=== PATIENT | female | born 1980 | race Hispanic/Latino ===

== ENCOUNTER 2018-09-10 09:34 | Emergency (ER) | payer BC ==
[~2018-09-10] VITALS: Ht 157.5 cm; Wt 136.4 kg
[2018-09-10] MEDS ORDERED: VITAMIN MULTI PO (09:42)
[2018-09-10] MEDS ORDERED: bcp PO (09:42)
[2018-09-10] MEDS ORDERED: OMEP40CA2 PO (09:42)
[2018-09-10] MEDS ORDERED: NS 1,000 ML IV ONE (10:30)
[2018-09-10 10:51] LABS: BASO % 0.2 % (0.0-1.0); EOS # 0.1 10^3/uL (0.0-0.50); EOS % 0.5 % (0.0-3.0); HEMATOCRIT 39.3 % (36.0-47.0); HEMOGLOBIN 13.2 g/dl (12.0-15.5); LYMPH # 1.6 10^3/uL (1.5-4.5); LYMPH % 9.4 % (24.0-44.0); MEAN CORPUSCULAR HEMOGLOBIN 28.4 pg (27.0-33.0); MEAN CORPUSCULAR HGB CONC 33.6 g/dl (32.0-36.5); MEAN CORPUSCULAR VOLUME 84.5 fl (80.0-96.0); MONO # 0.6 10^3/uL (0.0-0.8); MONO % 3.7 % (0.0-5.0); NEUTROPHILS # 14.5 10^3/uL (1.8-7.7); NEUTROPHILS % 85.4 % (36.0-66.0); PLATELET COUNT, AUTOMATED 316 10^3/uL (150-450); RED BLOOD COUNT 4.65 10^6/uL (4.00-5.40)
[2018-09-10 11:16] LABS: HCG, SERUM QUALITATIVE NEGATIVE (NEGATIVE)
[2018-09-10 11:17] LABS: BLOOD UREA NITROGEN 10 MG/DL (7-18); CALCIUM LEVEL 8.8 MG/DL (8.5-10.1); CARBON DIOXIDE LEVEL 21 MEQ/L (21-32); CHLORIDE LEVEL 106 MEQ/L (98-107); CREATININE FOR GFR 0.55 MG/DL (0.55-1.30); ETHYL ALCOHOL (ETHANOL) < 0.003 % (0.000-0.010); GLOMERULAR FILTRATION RATE > 60.0 (>60); GLUCOSE, FASTING 106 MG/DL (70-100); POTASSIUM SERUM 4.4 MEQ/L (3.5-5.1); SODIUM LEVEL 137 MEQ/L (136-145)
--- NOTE | 2018-09-10 12:41 | REP ---
CT of the brain without IV contrast: There is a frontal scalp hematoma. No calvarial fracture is identified. There is no subdural or epidural hematoma. There is no intraparenchymal or subarachnoid hemorrhage. There is no edema, mass effect or midline shift. Ventricles are normal size and midline. The visualized paranasal sinuses and mastoid air cells are clear. Impression: Frontal scalp hematoma. No intracranial hemorrhage, edema, mass effect or shift. Electronically Signed by Reji Seth MD 09/10/2018 12:32 P
--- NOTE | 2018-09-10 12:47 | REP ---
CT of the chest without IV contrast: There is no pneumothorax, hemothorax or pulmonary contusion. The lung guzman otherwise clear. There is no mediastinal hematoma. In the absence of IV contrast the study is insensitive for thoracic aortic dissection. Cardiac size is normal. No clavicle, scapula, sternal, rib or thoracic vertebral fractures are identified except for a questionable nondisplaced fracture of the right acromion on the superior most image. Impression: Essentially negative CT scan of the chest except for questionable nondisplaced fracture of the right acromion on the superior most image. Electronically Signed by Reji Seth MD 09/10/2018 12:39 P
--- NOTE | 2018-09-10 12:49 | REP ---
CT study of the cervical spine without contrast: History: Trauma. Technique: Helical scanning is acquired and overlapping 2 mm high resolution axial images were generated and reviewed at bone and soft tissue window settings. Coronal and sagittal multiplanar re-formations images are generated. CT findings: There is no evidence of cervical spine element fracture. No skull base fracture is seen. Cervical vertebral body heights are preserved. There is mild straightening on sagittal reformatted images and a mild levoconvex curvature is seen on coronal reformatted images consistent with spasm. Alignment is normal. Facet joints are normally aligned bilaterally at each cervical level on multiplanar re-formations images. There is no evidence of intraspinal or paraspinal hematoma. No extra vertebral abnormality is seen. Impression: Straightening, otherwise negative CT study of the cervical spine without contrast. No fracture seen. Electronically Signed by Ming Schmidt MD 09/10/2018 12:42 P
[2018-09-10 12:59] LABS: AMPHETAMINES LEVEL URINE NEGATIVE (NEGATIVE); BARBITURATES URINE NEGATIVE (NEGATIVE); BENZODIAZEPINES URINE NEGATIVE (NEGATIVE); CANNABINOIDS URINE NEGATIVE (NEGATIVE); COCAINE METABOLITE URINE NEGATIVE (NEGATIVE); METHADONE URINE NEGATIVE (NEGATIVE); OPIATES URINE NEGATIVE (NEGATIVE); PHENCYCLIDINE URINE NEGATIVE (NEGATIVE)
--- NOTE | 2018-09-10 13:24 | REP ---
CT of the abdomen and pelvis without IV or bowel contrast: There are no comparisons. There is soft tissue edema in the subcutaneous fat in the midline of the lower thoracic and lumbar areas. There are no focal fluid collections to suggest hematoma. The unenhanced hepatic parenchyma is homogeneous. The gallbladder, pancreas and unenhanced spleen are unremarkable. The adrenals and unenhanced kidneys are unremarkable. The unenhanced abdominal aorta is unremarkable. There is no periaortic hematoma. There is no hemoperitoneum. There is no pneumoperitoneum. There is no bowel distension or wall thickening. Pelvis: There is a 4.3 cm ring-shaped calcification anterolateral to the uterus on the right. This could represent a degenerating uterine fibroid or possibly a right ovarian mass. Follow-up ultrasound might be considered. There is no pelvic free fluid. The bladder is unremarkable. The pelvic bowel loops are unremarkable. No lumbar, sacral, pelvic or hip fractures are identified. There is degenerative disc disease in the lumbar spine L5 S1.Impression:There is no hemoperitoneum or pneumoperitoneum. There is no solid organ injury, however the study is insensitive in the absence of IV contrast. 4.3 cm ring-shaped mass in the right adnexa, nonspecific, right ovarian mass versus degenerating uterine fibroid. Consider ultrasound follow-up. No fractures are identified. L5 S1 degenerative disc disease. Electronically Signed by Reji Seth MD 09/10/2018 01:15 P
--- NOTE | 2018-09-10 13:29 | REP ---
The thoracic spine without contrast: History: Trauma. Technique: Helical scanning is acquired. Axial images are reformatted. Coronal and sagittal multiplanar re-formation images are generated and reviewed. CT findings: Thoracic vertebral body heights are preserved. Alignment is normal. No fracture or collapse is seen. No paravertebral hematoma is appreciated. There are mild degenerative disc changes in the mid and lower thoracic spine with anterior discogenic spurring. Visualized posterior ribs appear intact. Adjacent visualized lung guzman are unremarkable. Impression: Mild degenerative disc changes in the mid and lower thoracic spine. No traumatic abnormality noted. Electronically Signed by Ming Schmidt MD 09/10/2018 01:20 P
--- NOTE | 2018-09-10 13:45 | REP ---
MAXILLOFACIAL CT STUDY WITHOUT CONTRAST: HISTORY: Trauma. CT FINDINGS: There is soft-tissue swelling of the right frontal region consistent with a scalp hematoma. There is no evidence of skull or orbital fracture. Orbital margins are intact. Zygomatic arches are intact. Nasal bone appears intact. No facial fracture is appreciated. No mandibular fracture is seen. Visualized paranasal sinuses are clear. No intraorbital hematoma is appreciated. The visualized intracranial structures are unremarkable. IMPRESSION: Right frontal scalp hematoma. Otherwise negative. No facial fractures seen. Electronically Signed by Ming Schmidt MD 09/10/2018 08:31 P
--- NOTE | 2018-09-10 13:47 | REP ---
Right wrist four views : There is no fracture or dislocation. Mineralization and joint spaces are normal. There are no calcifications or foreign bodies. An IV cannula is incidentally noted in the soft tissues over the dorsum. Impression: Negative right wrist . Left wrist four views : There is no fracture or dislocation. Mineralization and joint spaces are normal. There are no calcifications or foreign bodies. Impression: Negative left wrist . Electronically Signed by Reji Seth MD 09/10/2018 01:39 P
--- NOTE | 2018-09-10 13:48 | REP ---
Right knee four views: Mineralization is normal. There is no fracture or dislocation. There is no effusion. There is tricompartment osteoarthritis. Electronically Signed by Reji Seth MD 09/10/2018 01:40 P
--- NOTE | 2018-09-10 13:49 | REP ---
Right shoulder four views: Mineralization and joint spaces are normal. There is no fracture or dislocation. No acromial fracture is identified. There are no calcifications or foreign bodies. Impression: Negative right shoulder. Electronically Signed by Reji Seth MD 09/10/2018 01:41 P
--- NOTE | 2018-09-10 13:50 | REP ---
Left ankle four views : There is no fracture or dislocation. Mineralization and joint spaces are normal. There are no calcifications or foreign bodies. Impression: Negative left ankle . Electronically Signed by Reji Seth MD 09/10/2018 01:42 P
[2018-09-10 14:08] VITALS: BP 166/89
[2018-09-10] MEDS ORDERED: IBUP-1022 PO (14:20)
[2018-09-10] MEDS ORDERED: ONDA4TAB6 PO (14:20)
[2018-09-10] MEDS ORDERED: IBUPROFEN 600 MG TAB PO ONE (14:30)
[2018-09-10] MEDS ORDERED: ONDANSETRON 4 MG ORAL DISINTEGRATING TAB (Q0162 PER 1MG) PO ONE (14:30)
--- NOTE | 2018-09-10 15:09 | ED PDOC ---
Post-Departure Follow-Up jonathan dockery faxed formal report of ct abd/p for fu Oumar Dc MD Sep 10, 2018 15:09
== END 2018-09-10 14:51 | disposition home or self-care (01) ==
LOC: M ED 09:34
DX: S09.90XA Unspecified injury of head, initial encounter (principal); S00.83XA Contusion of other part of head, initial encounter; S20.219A Contusion of unspecified front wall of thorax, initial encounter; S10.93XA Contusion of unspecified part of neck, initial encounter; S20.229A Contusion of unspecified back wall of thorax, initial encounter; S60.211A Contusion of right wrist, initial encounter; S60.212A Contusion of left wrist, initial encounter; S80.01XA Contusion of right knee, initial encounter; S90.02XA Contusion of left ankle, initial encounter; S06.0X9A Concussion with loss of consciousness of unspecified duration, initial encounter; W10.9XXA Fall (on) (from) unspecified stairs and steps, initial encounter; Y92.099 Unspecified place in other non-institutional residence as the place of occurrence of the external cause; Y93.9 Activity, unspecified; Y99.9 Unspecified external cause status; M51.37 Other intervertebral disc degeneration, lumbosacral region; R93.5 Abnormal findings on diagnostic imaging of other abdominal regions, including retroperitoneum; R93.7 Abnormal findings on diagnostic imaging of other parts of musculoskeletal system; M17.11 Unilateral primary osteoarthritis, right knee; M51.34 Other intervertebral disc degeneration, thoracic region; Z79.3 Long term (current) use of hormonal contraceptives; Z79.899 Other long term (current) drug therapy; Z88.6 Allergy status to analgesic agent; Z88.5 Allergy status to narcotic agent; Z91.89 Other specified personal risk factors, not elsewhere classified; Z91.010 Allergy to peanuts
CPT/HCPCS: 70450; 70486; 71250; 72125; 72128; 73030; 73110; 73564; 73610; 74176; 80048; 80307; 81001; 84703; 85025; 86850; 86870; 86900; 86901; 99284; G0480; Q0162

== ENCOUNTER → 2019-11-06 | Outpatient (CLI) | payer BC ==
[~2019-11-06] MED LIST: IBUP-1022 PO; OMEP40CA97 PO; ONDA4TAB6 PO; VITAMIN MULTI PO; bcp PO
== END ==
LOC: M LABSMTC 13:57
PROVIDERS: ATTEND Family Medicine
DX: Z03.818 Encounter for observation for suspected exposure to other biological agents ruled out (principal); Z11.59 Encounter for screening for other viral diseases
CPT/HCPCS: C9803; U0003

== ENCOUNTER 2019-11-25 19:57 | Emergency (ER) | payer BC, OTHER ==
[~2019-11-25] VITALS: Ht 157.5 cm; Wt 136.6 kg
[2019-11-25 20:09] VITALS: BP 131/69
[2019-11-25] MEDS ORDERED: IBUP-1022 PO (20:59)
[2019-11-25] MEDS ORDERED: IBUPROFEN 600MG TAB PO ONE (21:15)
--- NOTE | 2019-11-26 08:14 | REP ---
Left knee series: Five views. History: Injury in a fall. Findings: Five views of the left knee demonstrate moderate medial, lateral, and patellofemoral compartment osteoarthritic spurring. There is no evidence of fracture, subluxation, or joint effusion. Fragmented spurring is seen along the lateral aspect of the patella. Impression: Moderate to advanced three compartment osteoarthritic changes. No acute traumatic abnormality noted. Electronically Signed by Ming Schmidt MD 11/26/2019 08:06 A
--- NOTE | 2019-11-26 08:15 | REP ---
Right ankle series: Four views. History: Injury in a fall. Findings: Four views right ankle demonstrate mild anterolateral soft tissue swelling. There is plantar and Achilles calcaneal spurring. The ankle mortise is intact. No fractures seen. No other acute bony abnormality. Impression: Anterolateral soft-tissue swelling. Heel spurring. No fracture or other acute bony abnormality Electronically Signed by Ming Schmidt MD 11/26/2019 08:06 A
--- NOTE | 2019-11-26 08:15 | REP ---
Left wrist series: Four views. History: Injury in a fall. Comparison left wrist radiographs are from September 10, 2018. Findings: Overall mineralization pattern is normal. Bones, joints, and soft tissues are unremarkable and unchanged. No fracture or subluxation is seen. Impression: No fracture seen. Electronically Signed by Ming Schmidt MD 11/26/2019 08:07 A
== END 2019-11-25 21:20 | disposition home or self-care (01) ==
LOC: M ED 19:57
DX: S93.401A Sprain of unspecified ligament of right ankle, initial encounter (principal); T14.8XXA Other injury of unspecified body region, initial encounter; W18.39XA Other fall on same level, initial encounter; Y92.513 Shop (commercial) as the place of occurrence of the external cause

== ENCOUNTER → 2020-08-31 | Outpatient (CLI) | payer BC, MEDICAID ==
--- NOTE | 2020-09-04 07:55 | ECWPNPC ---
PATIENT NAME: JERONIMO BAUTISTA : 1980 GENDER: FEMALE VISIT DATE: 08/31/2020 DISCHARGE DATE: 08/31/20 1412 VISIT LOCKED DATE TIME: PHYSICIAN: KAYLENE SALVADOR RESOURCE: KAYLENE SALVADOR REASON FOR APPOINTMENT 1. WRIST,ANKLE KNEE. HISTORY OF PRESENT ILLNESS DEPRESSION SCREENING: PHQ-9 LITTLE INTEREST OR PLEASURE IN DOING THINGSSEVERAL DAYS FEELING DOWN, DEPRESSED, OR HOPELESSSEVERAL DAYS TROUBLE FALLING OR STAYING ASLEEP, OR SLEEPING TOO MUCHMORE THAN HALF THE DAYS FEELING TIRED OR HAVING LITTLE ENERGYNEARLY EVERY DAY POOR APPETITE OR OVEREATING MORE THAN HALF THE DAYS FEELING BAD ABOUT YOURSELF-OR THAT YOU ARE A FAILURE OR HAVE LET YOURSELF OR YOUR FAMILY DOWN NEARLY EVERY DAY TROUBLE CONCENTRATING ON THINGS, SUCH READING THE NEWSPAPER OR WATCHING TELEVISION NEARLY EVERY DAY MOVING OR SPEAKING SO SLOWLY THAT OTHER PEOPLE COULD HAVE NOTICED. OR THE OPPOSITE- BEING SO FIDGETY OR RESTLESS THAT YOU HAVE BEEN MOVING AROUND A LOT MORE THAN USUALMORE THAN HALF THE DAYS THOUGHTS THAT YOU WOULD BE BETTER OFF , OR OF HURTING YOURSELF IN SOME WAY?NOT AT ALL TOTAL SCORE:17 INTERPRETATIONMODERATELY SEVERE DEPRESSION PHQ-2 (2015 EDITION) LITTLE INTEREST OR PLEASURE IN DOING THINGS?SEVERAL DAYS FEELING DOWN, DEPRESSED, OR HOPELESS?SEVERAL DAYS TOTAL SCORE2 GENERAL: 40-YEAR-OLD FEMALE HERE PER REFERRAL OF [facility], LESLIE HAWKINS PA-C TO EVALUATE PERSISTENT RIGHT ANKLE PAIN STATUS POST INJURY. STATES THAT IN NOVEMBER 2019 SHE SLIPPED ON A PIECE OF FRUIT AT [facility] AND HAS BEEN HAVING PERSISTENT MAINLY RIGHT ANKLE PAIN SINCE THAT POINT. RECEIVED STEROID INJECTION INTO RIGHT ANKLE APPROXIMATELY 6 WEEKS AGO BY [facility] AND PATIENT REPORTS THIS HELPED WITH HER PAIN. CONTINUES TO GET SOME BENEFIT FROM THIS TODAY. REPORTS EPISODES OF SHARP PAIN AND SWELLING IN HER RIGHT FOOT AND ANKLE. UNDER A LOT OF STRESS. GOING THROUGH A DIVORCE. DISCUSSED [facility]. PATIENT DENIES ANY SUICIDAL OR HOMICIDAL IDEATIONS. SHE DOES NOT DEMONSTRATE ISSUES ASSOCIATED WITH RSD IN THE RIGHT FOOT/ANKLE AREA.- - -. FALL RISK SCREENING: SCREENING November FALL IN [facility] [place] WENT TO THE ER. PAIN SCREENING: PATIENT HAS A COMPLAINT OF ACUTE OR CHRONIC PAIN :YES LOCATION OF PAIN:OTHER: LEFT WRIST AND LEFT KNEE, LEFT EBLOW INTENSITY OF PAIN (SCALE OF 1 TO 10):7 WHAT DOES YOUR PAIN FEEL LIKE:ACHING, SHARP, SHOOTING DURATION:INTERMITTENT PAIN IS INCREASED BY:ACTIVITIES PAIN IS DECREASED BY:OTHERS LAYING DOWN NURSING NOTE: - - -. PAIN CENTER INTAKE QUESTIONS: DO YOU HAVE A HISTORY OF MRSA? :NO DO YOU TAKE A BLOOD THINNERS? :NO DO YOU HAVE ANY BLEEDING DISORDERS? :NO ANY NEW NUMBNESS OR WEAKNESS IN YOUR LEGS OR ARMS? :NO ANY PACEMAKER,DEFIBRILLATOR, OR DORSAL COLUMN STIMULATOR? :NO DO YOU HAVE ANY RASHES OR OPEN SORES? :NO ARE YOU ALLERGIC TO IV DYE? :NO ARE YOU DIABETIC? :NO ANY NEW PROBLEMS WITH YOUR MEDICATIONS? :NO HAVE YOU RECEIVED A VACCINE IN THE PAST 30 DAYS? :NO DO YOU PLAN TO RECEIVE A VACCINE IN THE NEXT 21 DAYS? :NO DO YOU NEED ANY PRESCRIPTION? :NO DO YOU TAKE ANY IMMUNOSUPPRESSIVE MEDICATIONS? :NO CURRENT MEDICATIONS TAKING CLARITIN 10 MG TABLET 1 TABLET ORALLY ONCE A DAY TAKING OMEPRAZOLE 10 MG CAPSULE DELAYED RELEASE 1 CAPSULE 30 MINUTES BEFORE MORNING MEAL ORALLY ONCE A DAY TAKING IRON 1 TAB ORAL TAKING VENTOLIN HFA 108 (90 BASE) MCG/ACT AEROSOL SOLUTION 1-2 PUFFS NEEDED INHALATION EVERY 6 HRS TAKING IBUPROFEN 200 MG TABLET 1 TABLET WITH FOOD OR MILK NEEDED ORALLY THREE TIMES A DAY TAKING TYLENOL 325 MG TABLET 1 TABLET NEEDED ORALLY EVERY 4 HRS TAKING CITALOPRAM HYDROBROMIDE 10 MG TABLET TAKE 1 TABLET BY MOUTH ONCE DAILY FOR 30 DAYS ORAL NOT-TAKING TESSALON PERLES 100 MG CAPSULE 1 CAPSULE NEEDED ORALLY THREE TIMES A DAY NOT-TAKING MULTI COMPLETE - CAPSULE DIRECTED ORALLY NOT-TAKING PREDNISONE 10 MG TABLET 3 TABLETS ORALLY ONCE A DAY NOT-TAKING PREDNISONE 10 MG TABLET 3 TABLETS ORALLY ONCE A DAY NOT-TAKING DICLOFENAC SODIUM 75 MG TABLET DELAYED RELEASE 1 TABLET ORALLY TWICE A DAY MEDICATION LIST REVIEWED AND RECONCILED WITH THE PATIENT PAST MEDICAL HISTORY ANXIETY DEPRESSION WRIST/ANKLE/KNEE ALLERGIES VICODIN: DYSPNEA - ALLERGY OXYCODONE HCL: DYSPNEA - ALLERGY DILAUDID: DYSPNEA - ALLERGY IODINE: DYSPNEA - ALLERGY SURGICAL HISTORY CEASAREAN SECTION X3 TONSILLECTOMY FAMILY HISTORY FATHER: ALIVE, DIAGNOSED WITH HYPERTENSION MOTHER: ALIVE, HYPERTENSION SIBLINGS: ALIVE SON(S): ALIVE DAUGHTER(S): ALIVE 1 BROTHER(S) , 1 SISTER(S) - HEALTHY. 2 SON(S) , 1 DAUGHTER(S) - HEALTHY. FATHER: HYPERTENSIONMOTHER: HYPERTENSION, HEART DISEASE, HYPERCHOLESTEROLEMIA, THYROID DISEASE. SOCIAL HISTORY GENERAL: TOBACCO USE ARE YOU A:NONSMOKER LATEX QUESTIONNAIRE LATEX ALLERGY : HAVE YOU EVER DEVELOPED ANY TYPE OF REACTION AFTER HANDLING LATEX PRODUCTS SUCH RUBBER GLOVES, CONDOMS, DIAPHRAGMS, BALLOONS, SOCKS, OR UNDERWEAR?NO LATEX ALLERGY : HAVE YOU EVER DEVELOPED ANY TYPE OF REACTION DURING OR AFTER DENTAL APPOINTMENT, VAGINAL/RECTAL EXAMINATION, SURGICAL PROCEDURE, OR ANY OTHER EXPOSURE?NO LATEX RISK : HAVE YOU EVER HAD ANY DIFFICULTY BREATHING OR HIVES AFTER EATING OR HANDLING ANY FRUITS, OR VEGETABLES; SUCH KIWI, BANANAS, STONE FRUITS, OR CHESTNUTSYES - PLEASE INDICATE : BANANAS, CHESTNUTS LATEX RISK : DO YOU HAVE A PREVIOUS PERSONAL HISTORY OF MORE THAN NINE SURGERIES, SPINA BIFIDA, OR REPEATED CATHERIZATIONS? NO LATEX RISK : ARE YOU FREQUENTLY EXPOSED TO LATEX PRODUCTS IN YOUR OCCUPATION?NO DATE ASKED : 08/31/2020 ALCOHOL USE: NO. RECREATIONAL DRUG USE DRUG USE?NO LANGUAGE LANGUAGES SPOKEN:GREEK LEARNING BARRIERS / SPECIAL NEEDS CHANGE FROM LAST VISIT?NO BARRIERS TO LEARNING?NO HEARING IMPAIRED?YES : SLIGHT DEAF IN LEFT EAR VISION IMPAIRED?YES :CORRECTIVE LENSES COGNITIVELY IMPAIRED?NO READINESS TO LEARN?YES LEARNING PREFERENCES?NO LEARNING CAPABILITIES PRESENT?YES EMOTIONAL BARRIERS?NO SPECIAL DEVICES?NO FUR SEWER NEEDED?NO HOSPITALIZATION/MAJOR DIAGNOSTIC PROCEDURE CHILDBIRTH REVIEW OF SYSTEMS CONSTITUTIONAL: ANY RECENT FEVER NO . CHILLS NO . WEIGHT CHANGE OF UNKNOWN REASONS NO . GASTROENTEROLOGY: NEW UNEXPLAINABLE CHANGES IN BOWEL CONTROL NO . CONSTIPATION NO . GENITOURINARY: ANY NEW CHANGE IN BLADDER CONTROL? NO . NEUROLOGY: NEW ONSET DIZZINESS OR NEUROLOGICAL CHANGES NOT MENTIONED NO . NEW NUMBNESS OR PAIN PATTERNS NOT MENTIONED AND PERTINENT TO TODAY'S VISIT NO . CARDIOLOGY: NEW CHEST PRESSURE NO . PATIENT DENIES NO . RESPIRATORY: UNEXPLAINABLE COUGH NO . NEW SHORTNESS OF BREATH NO . VITAL SIGNS WT 314.6 LBS, HT 5'2", BMI 57.53 INDEX, BP 137/92 MM HG, HR 83 /MIN, RR 18 /MIN, TEMP 98.5 F, OXYGEN SAT % 99, SAFE IN ENV? (Y/N) YES, NA INITIALS AW 1314T.GONZALO MCMAHON NOFTY PROVIDER ABOUT BP. EXAMINATION GENERAL EXAMINATION: GENERALNO ACUTE DISTRESS, ANXIOUS . PSYCHAFFECT IS CONSTRICTED , PRESSURED SPEECH NOTED . NECK:NO LYMPHADENOPATHY, SUPPLE. LUNGS:CLEAR TO AUSCULTATION BILATERALLY, NO WHEEZES, RHONCHI, RALES. HEART:NO MURMURS, REGULAR RATE AND RHYTHM. MUSCULOSKELETAL:NORMAL RANGE OF MOTION, MUSCLE STRENGTH TESTING 5/5 BILATERAL LOWER EXTREMITIES. JOINTS:MILDLY TENDER WITH PALPATION OVER RIGHT MALLEOLUS, SMALL AMOUNT OF SWELLING APPRECIATED, NO REDNESS. NO HYPERSENSITIVITY TO LIGHT TOUCH . ASSESSMENTS PAIN IN RIGHT ANKLE AND JOINTS OF RIGHT FOOT - M25.571 (PRIMARY) OTHER CHRONIC PAIN - G89.29 TREATMENT PAIN IN RIGHT ANKLE AND JOINTS OF RIGHT FOOT START GABAPENTIN CAPSULE, 100 MG, 1 CAPSULE, ORALLY, 3X DAILY, 30 DAY(S), 90, REFILLS 1 NOTES: CONTINUE WITH FOLLOWING [facility] TO REPEAT STEROID INJECTIONS INTO RIGHT ANKLE NEEDED. I DON'T SEE ANY INTERVENTIONAL THERAPY OPTIONS FOR HER AT THIS TIME. TODAY I'VE STARTED GABAPENTIN 100 MG WITH INSTRUCTIONS TO TAKE 1 TABLET AT NIGHT X5 DAYS THEN INCREASE TO ONE MORNING AND NIGHT X5 DAYS AND THEN 1 TABLET 3 TIMES DAILY. FOLLOW-UP AT PAIN CENTER IS SCHEDULED IN 2 MONTHS. PRINTED NEW MEDICATION INFORMATION FOR PATIENT DEDE MCMAHON. PROCEDURE CODES FA211 ESTABILISHED PATIENT [facility] CHARGE DISPOSITION & COMMUNICATION FOLLOW UP 2 MONTHS (REASON: FOLLOW-UP ON GABAPENTIN, RIGHT ANKLE PAIN) ELECTRONICALLY SIGNED BY LUNA VIDALES ON 09/03/2020 AT 12:55 PM EDT DISCLAIMER : THIS IS A VISIT SUMMARY EXTRACTED FROM THE [employer] CHART. IT IS NOT A COPY OF THE [employer] PROGRESS NOTE. SERGO
== END ==
LOC: M PAIN 13:00
PROVIDERS: ATTEND Nurse Practitioner Family
DX: G89.29 Other chronic pain (principal); M25.571 Pain in right ankle and joints of right foot; F41.9 Anxiety disorder, unspecified; F32.9 Major depressive disorder, single episode, unspecified; Z79.899 Other long term (current) drug therapy; Z88.5 Allergy status to narcotic agent; Z88.8 Allergy status to other drugs, medicaments and biological substances

== ENCOUNTER → 2020-09-03 | Outpatient (CLI) | payer BC, OTHER ==
--- NOTE | 2020-09-03 12:13 | REP ---
INDICATION: N64.4 RT BREAST PAIN. COMPARISON: None. TECHNIQUE: MLO and CC views right breast performed with tomosynthesis, right mL view. Right breast ultrasound performed. FINDINGS: There is mild scattered fibroglandular tissue throughout the right breast. There is no discrete cystic or solid nodule identified. No clustered microcalcifications are seen. Real-time sonographic evaluation of the entire right breast is performed. No discrete cystic or solid nodule is seen. Volpara breast density B. IMPRESSION: BIRADS/ACR category 1, negative mammogram and ultrasound right breast. No discrete cystic or solid nodule identified. Tyrer-Cuzick lifetime risk of breast cancer 17.1%. The patient states she has not had a clinical breast exam in over 1 year. This mammogram was interpreted with the aid of an FDA-approved computer-aided detection system. The patient letter being requested is M2. RECOMMENDATION: Repeat continued clinical correlation, screening mammography recommended 1 year <Electronically signed by Reji Wyman > 09/03/20 [id number]
== END ==
LOC: M WHC 08:52
PROVIDERS: ATTEND Nurse Practitioner Family
DX: N64.4 Mastodynia (principal)
CPT/HCPCS: 76641; 77065; G0279

== ENCOUNTER → 2020-10-05 | Outpatient (CLI) | payer BC, MEDICAID ==
--- NOTE | 2020-10-05 12:23 | REP ---
INDICATION: SPRAIN OF RT ANKLE. COMPARISON: Radiographs 11/25/2019. TECHNIQUE: Multiple sequences are obtained in the axial, coronal and sagittal planes. FINDINGS: The Achilles, anterior tibial, posterior tibial, flexor hallucis longus, flexor digitorum longus and peroneal tendons are all intact without significant tenosynovitis. The anterior and posterior talofibular, calcaneofibular and deltoid ligaments appear intact. Plantar tendon appears intact. There is no plantar fasciitis. Sinus tarsi appears unremarkable. No ganglion cyst is seen. There is normal amount of joint fluid. The cartilaginous surfaces are smooth. No osteochondral defect is seen at the tibiotalar joint. There is no bone marrow edema or occult fracture. IMPRESSION: Negative MRI of the ankle. <Electronically signed by Reji Wymna > 10/05/20 0545
== END ==
LOC: M RAD 10:32
PROVIDERS: ATTEND Physician Assistant
DX: S93.401D Sprain of unspecified ligament of right ankle, subsequent encounter (principal); X58.XXXD Exposure to other specified factors, subsequent encounter; Y92.89 Other specified places as the place of occurrence of the external cause

== ENCOUNTER → 2021-09-27 | Outpatient (CLI) | payer BC, MEDICAID ==
[~2021-09-27] MED LIST changes: +OMEP40CA4 PO; -OMEP40CA97 PO
== END ==
LOC: M PLAIMG 06:51
PROVIDERS: ATTEND Physician Assistant Surgical
DX: S93.401D Sprain of unspecified ligament of right ankle, subsequent encounter (principal)

== ENCOUNTER → 2022-06-09 | Outpatient (CLI) | payer BC, MEDICAID ==
[2022-06-09 18:04] LABS: BASO % 0.3 % (0.0-1.0); EOS # 0.2 10^3/uL (0.0-0.5); EOS % 1.5 % (0.0-3.0); HEMATOCRIT 39.3 % (36.0-47.0); HEMOGLOBIN 12.7 g/dl (12.0-15.5); LYMPH # 2.6 10^3/uL (1.5-5.0); LYMPH % 20.2 % (24.0-44.0); MEAN CORPUSCULAR HEMOGLOBIN 27.2 pg (27.0-33.0); MEAN CORPUSCULAR HGB CONC 32.3 g/dl (32.0-36.5); MEAN CORPUSCULAR VOLUME 84.2 fl (80.0-96.0); MONO # 0.8 10^3/uL (0.0-0.8); MONO % 5.9 % (2.0-8.0); NEUTROPHILS # 9.2 10^3/uL (1.5-8.5); NEUTROPHILS % 71.6 % (36.0-66.0); PLATELET COUNT, AUTOMATED 351 10^3/uL (150-450); RED BLOOD COUNT 4.67 10^6/uL (4.00-5.40); WHITE BLOOD COUNT 12.8 10^3/uL (4.0-10.0)
[2022-06-09 18:07] LABS: HEMOGLOBIN A1c 5.7 % (4.0-6.0)
[2022-06-09 18:21] LABS: ALBUMIN 3.3 G/DL (3.2-5.2); ALKALINE PHOSPHATASE 89 U/L (46-116); ALT/SGPT 15 U/L (7.0-40); AST/SGOT 14 U/L (<34); BILIRUBIN,TOTAL 0.5 MG/DL (0.3-1.2); BLOOD UREA NITROGEN 7 MG/DL (9-23); CALCIUM LEVEL 8.9 MG/DL (8.5-10.1); CARBON DIOXIDE LEVEL 22 MMOL/L (20-31); CHLORIDE LEVEL 102 MMOL/L (98-107); CHOLESTEROL LEVEL 162 MG/DL (<200); CHOLESTEROL RISK RATIO 3.24 (<5); CREATININE FOR GFR 0.46 MG/DL (0.55-1.30); GLOMERULAR FILTRATION RATE > 60.0 (>58); GLUCOSE, FASTING 99 MG/DL (60-100); HDL CHOLESTEROL 49.9 MG/DL (>40); LDL CHOLESTEROL 93.9 MG/DL (<100); NON-HDL-C 112 MG/DL; POTASSIUM SERUM 3.6 MMOL/L (3.5-5.1); SODIUM LEVEL 139 MMOL/L (136-145); TOTAL PROTEIN 7.1 G/DL (5.7-8.2); TRIGLYCERIDES LEVEL 91 MG/DL (<150)
[2022-06-09 18:22] LABS: TOTAL 25(OH) VITAMIN D 26.5 NG/ML (20.0-100.0)
== END ==
LOC: M PLALAB 14:42
PROVIDERS: ATTEND Nurse Practitioner Family
DX: Z00.00 Encounter for general adult medical examination without abnormal findings (principal); Z13.1 Encounter for screening for diabetes mellitus; Z13.220 Encounter for screening for lipoid disorders; E55.9 Vitamin D deficiency, unspecified

== ENCOUNTER → 2022-09-18 | Outpatient (CLI) | payer BC, MEDICAID ==
[2022-09-18 14:19] LABS: FREE T4 0.98 NG/DL (0.89-1.76); PROLACTIN 9.67 NG/ML
[2022-09-18 14:20] LABS: THYROID STIMULATING HORMONE 2.399 uIU/ML (0.55-4.78)
== END ==
LOC: M PLALAB 12:12
PROVIDERS: ATTEND Nurse Practitioner Family
DX: N92.1 Excessive and frequent menstruation with irregular cycle (principal); Z12.4 Encounter for screening for malignant neoplasm of cervix; R87.610 Atypical squamous cells of undetermined significance on cytologic smear of cervix (ASC-US)
CPT/HCPCS: 36415; 82627; 83498; 84146; 84402; 84403; 84439; 84443; 87624; G0123

== ENCOUNTER → 2022-09-26 | Outpatient (REF) | LOC: M PLAIMG 14:36 | PROVIDERS: ATTEND Internal Medicine | DX: M54.50 Low back pain, unspecified (principal); M54.2 Cervicalgia ==

== ENCOUNTER → 2023-01-26 | Outpatient (CLI) | payer BC, MEDICAID | LOC: M PLAIMG 16:41 | PROVIDERS: ATTEND Nurse Practitioner Family | DX: R20.0 Anesthesia of skin (principal); M25.572 Pain in left ankle and joints of left foot ==

== ENCOUNTER → 2023-03-30 | Outpatient (CLI) | payer BC, MEDICAID | LOC: M PLAIMG 14:57 | PROVIDERS: ATTEND Nurse Practitioner Family | DX: R20.0 Anesthesia of skin (principal); D17.24 Benign lipomatous neoplasm of skin and subcutaneous tissue of left leg ==

== ENCOUNTER → 2023-04-04 | Outpatient (CLI) | payer BC, MEDICAID | LOC: M PLAIMG 14:52 | PROVIDERS: ATTEND Nurse Practitioner Family | DX: R05.9 Cough, unspecified (principal) ==

== ENCOUNTER → 2024-02-19 | Outpatient (CLI) | payer MEDICAID, OTHER ==
[~2024-02-19] MED LIST changes: +ONDA-282 PO; -ONDA4TAB6 PO
== END ==
LOC: M LAB 13:55
PROVIDERS: ATTEND Nurse Practitioner Family
DX: R19.7 Diarrhea, unspecified (principal)

== ENCOUNTER → 2024-03-21 | Outpatient (CLI) | payer OTHER ==
[~2024-03-21] MED LIST changes: +BARIUM SULFATE 700 MG TABLET (E-Z-DISK) As Ordered ONE; +E-Z-PAQUE 96% w/w SUSP 176GM BTL As Ordered ONE; +VARIBAR NECTAR 40% w/v 240ML SUSP BTL As Ordered ONE; +VARIBAR PUDDING 40% w/v 230ML TUBE As Ordered ONE
== END ==
LOC: M RAD 11:37
PROVIDERS: ATTEND Nurse Practitioner Family
DX: R13.10 Dysphagia, unspecified (principal)

== ENCOUNTER → 2024-04-21 | Outpatient (REF) | payer MEDICAID, OTHER ==
[~2024-04-21] MED LIST changes: -BARIUM SULFATE 700 MG TABLET (E-Z-DISK) As Ordered ONE; -E-Z-PAQUE 96% w/w SUSP 176GM BTL As Ordered ONE; -VARIBAR NECTAR 40% w/v 240ML SUSP BTL As Ordered ONE; -VARIBAR PUDDING 40% w/v 230ML TUBE As Ordered ONE
== END ==
LOC: M SFHCDERM 07:50
PROVIDERS: ATTEND Nurse Practitioner Family
DX: D23.62 Other benign neoplasm of skin of left upper limb, including shoulder (principal)

== ENCOUNTER → 2024-05-23 | Outpatient (CLI) | payer OTHER ==
[~2024-05-23] MED LIST changes: +E-Z-GAS II EFFERVESCENT PACKET (SODIUM BICARB./CITRIC ACID/SIMETHICONE) As Ordered ONE; +E-Z-HD 98% w/w 340GM SUSP BTL As Ordered ONE; +E-Z-PAQUE 96% w/w SUSP 176GM BTL As Ordered ONE; +LIQUID POLIBAR PLUS 105% w/v 750ML BTL As Ordered ONE
== END ==
LOC: M RAD 10:34
PROVIDERS: ATTEND Nurse Practitioner Family
DX: K62.5 Hemorrhage of anus and rectum (principal); K21.9 Gastro-esophageal reflux disease without esophagitis; K31.9 Disease of stomach and duodenum, unspecified; D25.9 Leiomyoma of uterus, unspecified; R13.10 Dysphagia, unspecified

== ENCOUNTER → 2024-09-10 | Outpatient (CLI) | payer OTHER ==
[~2024-09-10] MED LIST changes: -E-Z-GAS II EFFERVESCENT PACKET (SODIUM BICARB./CITRIC ACID/SIMETHICONE) As Ordered ONE; -E-Z-HD 98% w/w 340GM SUSP BTL As Ordered ONE; -E-Z-PAQUE 96% w/w SUSP 176GM BTL As Ordered ONE; -LIQUID POLIBAR PLUS 105% w/v 750ML BTL As Ordered ONE
== END ==
LOC: M PLALAB 14:45
PROVIDERS: ATTEND Allergy & Immunology Allergy
DX: T78.01XA Anaphylactic reaction due to peanuts, initial encounter (principal); T78.02XA Anaphylactic reaction due to shellfish (crustaceans), initial encounter; T78.05XA Anaphylactic reaction due to tree nuts and seeds, initial encounter

== ENCOUNTER → 2024-09-10 | Outpatient (CLI) | payer OTHER ==
[2024-09-10 18:18] LABS: FREE T4 1.03 NG/DL (0.89-1.76)
[2024-09-10 18:20] LABS: THYROID STIMULATING HORMONE 2.794 uIU/ML (0.55-4.78)
== END ==
LOC: M PLALAB 14:42
PROVIDERS: ATTEND Internal Medicine
DX: E03.9 Hypothyroidism, unspecified (principal)

== ENCOUNTER → 2024-09-23 | Outpatient (CLI) | payer OTHER ==
[2024-09-25 18:57] LABS: F013-IGE PEANUT 0.57 kU/L (<0.10); F017-IGE FILBERT 0.97 kU/L (<0.10); F018-IGE BRAZIL NUT < 0.1 kU/L (<0.10); F020-IGE ALMOND 0.33 kU/L (<0.10); F201-IGE PECAN NUT < 0.10 kU/L (<0.10); F202-IGE CASHEW NUT 0.44 kU/L (<0.10); F256-IGE WALNUT 0.25 kU/L (<0.10); F345-IGE MACADAMIA NUT 0.51 kU/L (<0.10); F422-IgE Ara h 1 < 0.10 kU/L (<0.10); F422-IgE Ara h 2 < 0.10 kU/L (<0.10); F422-IgE Ara h 6 < 0.10 kU/L (<0.10); F422-IgE Ara h 8 < 0.10 kU/L (<0.10); F422-IgE Ara h 9 < 0.10 kU/L (<0.10)
== END ==
LOC: M PLALAB 11:00
PROVIDERS: ATTEND Nurse Practitioner Family
DX: T78.05XD Anaphylactic reaction due to tree nuts and seeds, subsequent encounter (principal)